=== PATIENT | male | born 1975 | race Caucasian/White ===

== ENCOUNTER → 2016-06-16 | Outpatient (REF) ==
[2016-06-16 15:46] LABS: SYNOVIAL FLUID COLOR YELLOW (YELLOW)
[2016-06-16 15:47] LABS: RBC ADVIA BF 0; RBC CALC. BF < 10000 (< 10mm3 cells/uL); WBC ADVIA BF 26.02; WBC CALC. BF 26020 cells/uL (0-20)
[2016-06-16 15:48] LABS: BF DIFF IF INDICATED? YES (NO); CRYSTALS, BODY FLUID URIC ACID (NONE SEEN)
[2016-06-16 16:00] LABS: CC BF DIFF EXAM CYTOCENTRIFUGE; HCT SOURCE LFT KNEE
== END ==
LOC: M LAB REF 12:11
DX: M25.462 Effusion, left knee (principal)

== ENCOUNTER → 2018-03-14 | Outpatient (REF) ==
[2018-03-14 12:57] LABS: APPEARANCE, BODY FLUID CLOUDY (CLEAR); SOURCE, BODY FLUID RT KNEE; SYNOVIAL FLUID COLOR RED (YELLOW); WBC BODY FLUID 10754 /uL (0-10)
[2018-03-14 12:58] LABS: BF DIFF IF INDICATED? YES (NO); RBC BODY FLUID 57 10^3/uL (<2)
[2018-03-14 13:23] LABS: CRYSTALS, BODY FLUID NONE SEEN (NONE SEEN); SOURCE, BODY FLUID CRYSTALS RT KNEE
[2018-03-19 12:12] LABS: BF MONONUCLEAR CELL % 7.9 % (0-0)
[2018-03-19 12:13] LABS: BF POLYMORPHONUCLEAR CELL % 92.1 % (0-0)
== END ==
LOC: M LAB REF 12:28
DX: Z00.00 Encounter for general adult medical examination without abnormal findings (principal)

== ENCOUNTER → 2018-04-30 | Outpatient (CLI) | payer OTHER ==
[~2018-04-30] MED LIST: ISOVUE-370 76% 100ML VIAL (Q9967) As Ordered
== END ==
LOC: M RAD 07:54
DX: D49.2 Neoplasm of unspecified behavior of bone, soft tissue, and skin (principal)
CPT/HCPCS: Q9967